=== PATIENT | male | born 1990 | race Caucasian/White ===

== ENCOUNTER 2024-07-15 09:43 | Outpatient (AMB) | payer OTHER, SELFPAY ==
--- NOTE | 2024-07-15 09:59 | AM.OFFWIN_ITS ---
Intake Vital Signs 07/15/24 10:05 Height 5 ft 5.75 in Weight 161 lb BMI 26.2 BP 118/70 Blood Pressure Location Lt brachial Position Sitting Pulse 78 Pulse Source Pulse Oximeter Temp 97.8 F Temp Source Oral Pulse Oximetry (%) 98 Oxygen Delivery Method Room Air Intake Visit Reasons: cotton swab stuck in right ear Intake Note: pt is here for walk in, patient was cleaning his ear and suspects the cotton was stuck in his right ear Patient Tobacco Use Status: Never used Tobacco Allergies No Known Allergies Allergy (Verified 07/15/24 10:17) Medication List - Last Reconciled 07/15/24 by Anthony Fermin CNP escitalopram oxalate 10 mg PO DAILY loratadine 10 mg PO DAILY Do you need a note to return to daycare/school/sports/work: Yes HPI HPI Comments History of Present Illness Details 34-year-old male presents with complaint s of a cotton ball being stuck in his right eardrum. He was cleaning his ear with a Q-tip this morning, when the cotton ball dislodged and stuck in the ear. He notes minimal diminished hearing to the right ear. He denies pain or discomfort. [facility] Social History Patient Tobacco Use Status: Never used Tobacco Review of Systems Const Details: Denies chills, Denies fatigue, Denies fever(s), Denies headache(s) and Denies weakness Cardiac Denies chest pain, Denies claudication, Denies leg edema, Denies lightheadedness, Denies palpitations, Denies dyspnea, Denies dyspnea on exertion, Denies orthopnea and Denies other (Loss of consciousness) Resp Denies cough, Denies excessive phlegm production, Denies dyspnea, Denies dyspnea on exertion, Denies snoring and Denies wheezing ENT Reports as per HPI Physical Exam Vital Signs: Last Vital Signs Temp 97.8 F 07/15/24 10:05 Pulse 78 07/15/24 10:05 BP 118/70 07/15/24 10:05 Pulse Ox 98 07/15/24 10:05 Oxygen Delivery Method Room Air 07/15/24 10:05 BMI result Body Mass Index 26.2 Const Other: General: comfortable and no acute distress Orientation/consciousness: patient oriented x3 Chest Chest palpation & inspection: normal inspection of the chest Resp Auscultation: clear to auscultation bilaterally Cardiac Palpation: normal PMI Heart sounds: S1 normal heart sound present, S2 normal heart sound present, no gallops, no murmur, no rubs ENT Cotton ball impacted in the right ear canal, occluding the right TM Assessment & Plan Assessment & Plan (1) Foreign body in right ear: Code(s): T16.1XXA - Foreign body in right ear, initial encounter Plan: Full-sized cotton ball from Q-tip removed from the right ear with ear curette. Reports normal hearing after cotton ball removal. Advised to avoid inserting cotton ball in his ears and follow-up with his PCP as needed. Verbalized understanding and agreed with the plan. Coding Level of Care Code New Pt Level 3 (33211) Diagnoses Foreign body in right ear T16.1XXA
[2024-07-15 10:05] VITALS: BP 118/70; PULSE 78; TEMP 36.6; O2SAT 98; BMI 26.2
--- OUTSIDE RECORDS SUMMARY | 2024-07-15 11:02 | XMS_ITS | Encounter Summary ---
Author Organization [facility] Address [address] [place] [address] Care Team Providers Care Cracker Off Name Role Phone Magdalena Little MD Primary Care Provider [phone] Reason for Referral * Imaging (Routine) - Pending Review Specialty Diagnoses / Procedures Referred By Allison fung Referred To Contact Radiology Diagnoses Nonintractable headache, unspecified chronicity pattern, unspecified headache type Procedures CT Head wo Contrast Magdalena Little MD [address] [address] Phone: tel: fax: [address] [phone] Phone: tel: Referral ID Status Reason Start Date Expiration Date V isits Requested Visits Authorized [id number] Pending Review 07/08/2024 07/08/2025 1 1 Reason for Visit * Reason Comments Follow-up Headache 2 days ago Encounter Details Date Type Department Care Team (Late st Contact Info) Description 07/08/2024 9:45 AM EST Office Visit Internal Medicine - [place] [address] [address] Magdalena Little MD 175 [facility] [place] [address] [place] [address] Adult general medical examination (Primary Dx); Insomnia, unspecified type; Vitamin D deficiency; Other fatigue; Nonintractable headache, unspecified chronicity pattern, unspecified headache type Social History Tobacco Use Types Packs/Day Years Used Date Smoking Tobacco: Never Smokeless Tobacco: Never Tobacco Cessation:Counseling Given: Not Answered Alcohol Use Standard Drinks/Week Comments Yes 0 (1 standard drink = 0.6 oz pur e alcohol) Sex and Gender Information Value Date Recorded Sex Assigned at Male 02/23/2022 12:58 PM EDT Legal Sex Male 6:59 PM EDT Gender Identity Male 02/23/2022 12:58 PM EDT Sexual Orientation Straight 02/23/2022 12 :58 PM EDT documented as of this encounter Last Filed Vital Signs Vital Sign Reading Time Taken Comments Blood Pressure 118/80 07/08/2024 10:14 AM EST Pulse 92 07/08/2024 10:14 AM EST Temperature 36.6 ??C (97.8 ??F) 07/08/2024 10:[address] Respiratory Rate - - Oxygen Saturation 99% 07/08/2024 10:14 AM EST Inhaled Oxygen Concentration - - Weight 70.3 kg (155 lb) 07/08/2024 10:14 AM EST Height - - Body Mass Index 25.02 09/23/2023 3:01 PM EDT documented in this encounter Ordered Prescriptions Prescription Sig Dispense Quantity Refills Last Filled Start Date End Date cholecalciferol (Vitamin D3) 50 mcg (2,000 unit) tablet Take 1 tablet (2,000 Units total) by mouth 1 (one) time each day. 90 tablet 2 07/08/2024 documented in this encounter Progress Notes * Magdalena Little MD - 07/08/2024 9:45 AM ESTAddended by: MAGDALENA LITTLE on: 07/08/2024 09:46 PM Modules accepted: Orders * Magdalena Little MD - 07/08/2024 9:45 AM EST CHIEF COMPLAINT: Follow-up and Headache (2 days ago ) IDENTIFIER: Antonia Rob is a 34 y.o. old male who presents for evaluation of general medical health. HPI:patient has lost about 15 pounds in the last 1 year voluntarily, he is not taking losartan. Hisblood pressure seems to be good. Today he is concerned about recurrent headaches especially on the right side and also on the back of his head ROS: GENERAL: No malaise, significant weight loss or fever HEENT: No changes in hearing or vision, nose bleeds or other nasal problems NECK: No lumps, goiter, pain or significant neck swelling RESPIRATORY: No cough, wheezing or shortness of breath CARDIOVASCULAR: No chest pain, leg swelling or palpitations GI: No abdominal discomfort, blood in stools or black stools : No dysuria, frequency or incontinence CARPENTRY TEACHER: No abnormal vaginal bleeding or abnormal vaginal discharge. MUSCULOSKELETAL: No joint pain or swelling, back pain, or muscle pain. SKIN: No lesions, rash or itching PSYCH: No sleep disturbance, mood disorder or recent psychosocial stressors. HEMATOLOGY/LYMPHOLOGY No prolonged bleeding, easy bruisability or swollen nodes ENDOCRINE: No cold or heat intolerance, polyuria, polydipsia or goiter. NEURO: No persistent headache, syncope, seizures, weakness or numbness PAST MEDICAL HISTORY: Patient Active Problem List Diagnosis Date Noted Subacute cough 05/24/2023 Hallux valgus of right foot 12/27/2020 ADD (attention deficit disorder) 08/16/2020 Allergic rhinitis 08/16/2020 Anxiety 08/16/2020 Insomnia 08/16/2020 Metatarsalgia of both feet 08/16/2020 Past Surgical History: Procedure Laterality Date NASAL SEPTUM SURGERY PROCEDURE: [place] SEPTOPLASTY/SUBMUCOUS RESECJ W/WO CARTILAGE GRF; COMMENT: deviation Most Recent Immunizations Administered Date(s) Administered COVID-19 (Pfizer/Comirnaty) 12yo and older 03/03/2024 Hepatitis B (Rdtxvsb-J-Ofryk, Recombivax HB-Adult) 19yo and older 09/30/2020 Pfizer (ages 12 & older) Bivalent, COVID-19 08/28/2022 Pfizer SARS-CoV-2 COVID-19, mRNA, LNP-S, preservative free 06/20/2021 Tdap Tetanus diptheria acellular pertussis (Boostrix; Adacel) 7yo and older 09/30/2020 HEALTH MAINTENANCE: Health Maintenance Topic Date Due Depression Screening Never done HIV Screening Never done Hepatitis C Screening Never done Social Influencers of Health Screening Never done Hepatitis B Vaccines (3 of 3 - 19+ 3-dose series) 03/02/2021 Influenza Vaccine (1) 02/02/2024 Cholesterol Screening (Lipid Panel) 05/17/2028 DTaP,Tdap,and Td Vaccines (2 - Td or Tdap) 09/30/2030 COVID-19 Vaccine Completed HIB Vaccines Aged Out IPV Vaccines Aged Out Hepatitis A Vaccines Aged Out MMR Vaccines Aged Out Varicella Vaccines Aged Out Meningococcal ACWY Vaccine Aged Out HPV Vaccines Aged Out Pneumococcal Vaccine: Pediatrics (0 to 5 Years) and At-Risk Patients (6 to 64 Years) Aged Out RSV Immunization Patients Under 20 months Aged Out SOCIAL HISTORY: Social History Tobacco Use Smoking status: Never Smokeless tobacco: Never Substance Use Topics Alcohol use: Yes FAMILY HISTORY: Family History Problem Relation Name Age of Onset Hypertension Mother Thyroid disorder Family Status Relation Name Status Mother (Not Specified) No partnership data on file MEDICATIONS DISCONTINUED/REORDERED: There are no discontinued medications. ACTIVE MEDICATIONS: No outpatient medications have been marked as taking for the 07/08/24 encounter (Office Visit) with Magdalena Little MD. ALLERGIES: No Known Allergies PHYSICAL EXAM: Visit Vitals BP 118/80 (BP Location: Left arm, Patient Position: Sitting, BP Cuff Size: Large adult) Pulse 92 Temp 36.6 ??C (97.8 ??F) (Temporal) Wt 70.3 kg (155 lb) SpO2 99% BMI 25.02 kg/m?? Smoking Status Never BSA 1.79 m?? Body mass index is 25.02 kg/m??. APPEARANCE: Alert and in no acute distress EYES: PERRLA, conjunctiva and sclera normal. Normal fundal exam. EARS: External ears normal. Canals clear. TMs normal. NOSE/SINUS: Nares normal. Septum midline. Mucosa normal. No drainage or sinus tenderness. MOUTH/THROAT: no erythema or exudates NECK: Neck supple, no adenopathy, thyroid symmetric and of normal size HEART: RRR with normal S1 and S2, no murmurs, no gallops, no JVD appreciated CHEST: non-tender LUNG: clear to auscultation LYMPH NODES: grossly normal ABDOMEN: Bowel sounds normoactive, no bruits, soft, non-tender, without organomegaly or palpable masses BACK: No pain to palpation with good flexion and extension EXTREMITIES: No edema, no discoloration NEURO: alert oriented 3 SKIN: Skin color, texture, turgor normal. No rashes or lesions LABS: Abstract on 06/17/2024 Component Date Value Ref Range Status Annual BMP Blood Test 05/17/2023 abstracted Final HM Urine Albumin Creatinine Ratio 12/27/2020 abstracted Final LDL/HDL Ratio 05/17/2023 3 0 - 4 Final Triglycerides 05/17/2023 55 0 - 150 mg/dL Final Cholesterol 05/17/2023 174 0 - 200 mg/dL Final HDL 05/17/2023 62 40 mg/dL Final LDL Cholesterol 05/17/2023 101 (A) 0 - 100 mg/dL Final Hemoglobin A1C 05/17/2023 5.3 6.5 % Final Medication and lab orders: Orders Placed This Encounter Procedures CT Head wo Contrast Comprehensive metabolic panel Lipid panel with reflex to direct LDL Complete blood count Thyroid stimulating hormone Vitamin D 25 hydroxy Other orders: CT HEAD WO CONTRAST IMPRESSION: 1. Adult general medical examination 2. Insomnia, unspecified type 3. Vitamin D deficiency 4. Other fatigue 5. Nonintractable headache, unspecified chronicity pattern, unspecified headache type PLAN: Will order CBC CMP lipid TSH vitamin D will order CT head, follow-up in 1 year or sooner as needed,Tylenol as needed for the headache. Magdalena Little MD on 07/08/2024 at 12:30 PM EST documented in this encounter Plan of Treatment Upcoming Encounters Date Type Department Care Team (Late st Contact Info) Description 08/04/2024 7:15 AM EST Appointment [facility] CT Scan [address] [place] [address] Scheduled Orders Name Type Priority Associated Diagnoses Orde r Schedule CT Head wo Contrast Imaging Routine Nonintractable headache, unspecified chronicity pattern, unspecified headache type Expected: 07/08/2024, Expires: 07/08/2025 documented as of this encounter Results * (ABNORMAL) Vitamin D 25 hydroxy (07/08/2024 10:56 AM EST) Vit D, 25-Hydroxy 29.3(L) 30.0 - 80.0 ng/mL LAB CHEMISTRY METHOD 07/08/2024 6:17 PM EST [facility] Blood Venous blood specimen / Unknown Venipuncture / Unknown 07/08/2024 10:56 AM EST 07/08/2024 10:56 AM EST us Magdalena Little MD LAB BLOOD ORDERABLES Final Res ult [facility] [address] [place] [address], [place] [phone] * Thyroid stimulating hormone (07/08/2024 10:56 AM EST) TSH 0.49 0.40 - 4.00 mcIU/mL LAB CHEMISTRY METHOD 07/08/2024 6:17 PM EST [facility] Blood Venous blood specimen / Unknown Venipuncture / Unknown 07/08/2024 10:56 AM EST 07/08/2024 10:56 AM EST us Magdalena Little MD LAB BLOOD ORDERABLES Final Res ult Performing Organization Address City/[facility]/ZIP Co de Phone Number [facility] [address] [place] [address], [place] [phone] * Complete blood count (07/08/2024 10:56 AM EST) WBC 5.3 4.8 - 10.8 K/mcL LAB HEMETOLOGY METHOD 07/08/2024 2:36 PM EST [facility] RBC 5.20 4.50 - 5.50 M/mcL LAB HEMETOLOGY METHOD 07/08/2024 2:36 PM EST [facility] Hemoglobin 15.6 13.5 - 17.5 g/dL LAB HEMETOLOGY METHOD 07/08/2024 2:36 PM EST [facility] Hematocrit 46.7 42.0 - 54.0 % LAB HEMETOLOGY METHOD 07/08/2024 2:36 PM EST [facility] MCV 89.3 79.0 - 98.0 FL LAB HEMETOLOGY METHOD 07/08/2024 2:36 PM [facility] MCH 29.8 27.0 - 32.0 pcg LAB HEMETOLOGY METHOD 07/08/2024 2:36 PM EST [facility] MCHC 33.4 32.0 - 37.0 g/dL LAB HEMETOLOGY METHOD 07/08/2024 2:36 PM [facility] RDW 11.9 11.0 - 15.0 % LAB HEMETOLOGY METHOD 07/08/2024 2:36 PM [facility] Platelets 230 130 - 400 K/mcL LAB HEMETOLOGY METHOD 07/08/2024 2:36 PM EST [facility] MPV 10.4 7.0 - 11.0 FL LAB HEMETOLOGY METHOD 07/08/2024 2:36 PM [facility] NRBC 0.0 <1.0 % LAB HEMETOLOGY METHOD 07/08/2024 2:36 PM [facility] NRBC Absolute 0.00 <0.10 K/mcL LAB HEMETOLOGY METHOD 07/08/2024 2:36 PM [facility] Blood Venous blood specimen / Unknown Venipuncture / Unknown 07/08/2024 10:56 AM EST 07/08/2024 10:56 AM EST us Magdalena Little MD LAB BLOOD ORDERABLES Final Res ult [facility] [address] [place] [address], [place] [phone] * Lipid panel with reflex to direct LDL (07/08/2024 10:56 AM EST) Cholesterol 146 0 - 200 mg/dL LAB CHEMISTRY METHOD 07/08/2024 6:31 PM [facility] Triglycerides 42 0 - 150 mg/dL LAB CHEMISTRY METHOD 07/08/2024 6:31 PM [facility] HDL 61 >=40 mg/dL LAB CHEMISTRY METHOD 07/08/2024 6:31 PM [facility] LDL Calculated 77 0 - 100 mg/dL LAB CHEMISTRY METHOD 07/08/2024 6:31 PM [facility] VLDL Cholesterol Nishant 8.4 mg/dL LAB CHEMISTRY METHOD 07/08/2024 6:31 PM [facility] Non HDL Chol. (LDL+VLDL) 85 <145 mg/dL LAB CHEMISTRY METHOD 07/08/2024 6:31 PM [facility] Chol/HDL Ratio 2.4 0.0 - 4.4 LAB CHEMISTRY METHOD 07/08/2024 6:31 PM [facility] Blood Venous blood specimen / Unknown Venipuncture / Unknown 07/08/2024 10:56 AM EST 07/08/2024 10:56 AM EST us Magdalena Little MD LAB BLOOD ORDERABLES Final Res ult [facility] [address] [place] [address], * (ABNORMAL) Comprehensive metabolic panel (07/08/2024 10:56 AM EST) [facility] Sodium 140 133 - 145 mmol/L LAB CHEMISTRY METHOD 07/08/2024 6:31 PM [facility] Potassium 3.9 3.5 - 5.5 mmol/L LAB CHEMISTRY METHOD 07/08/2024 6:31 PM [facility] Chloride 106 96 - 110 mmol/L LAB CHEMISTRY METHOD 07/08/2024 6:31 PM [facility] CO2 29 21 - 32 mmol/L LAB CHEMISTRY METHOD 07/08/2024 6:31 PM [facility] Anion Gap 5 3 - 11 LAB CHEMISTRY METHOD 07/08/2024 6:31 PM [facility] Glucose 100 70 - 100 mg/dL LAB CHEMISTRY METHOD 07/08/2024 6:31 PM [facility] BUN 9 5 - 25 mg/dL LAB CHEMISTRY METHOD 07/08/2024 6:31 PM [facility] Creatinine 0.94 0.70 - 1.30 mg/dL LAB CHEMISTRY METHOD 07/08/2024 6:31 PM [facility] eGFR 110 >=60 mL/min/1. 73m2 LAB CHEMISTRY METHOD 07/08/2024 6:31 PM [facility] Comment:Calculation based on the??Chronic Kidney Disease Epidemiology Collaboration (CKD-EPI) equation refit??without adjustment for race. BUN/Creatinine Ratio 9.6 LAB CHEMISTRY METHOD 07/08/2024 6:31 PM [facility] Calcium 9.7 8.5 - 10.5 mg/dL LAB CHEMISTRY METHOD 07/08/2024 6:31 PM [facility] AST (SGOT) 18 10 - 42 unit/L LAB CHEMISTRY METHOD 07/08/2024 6:31 PM [facility] ALT (SGPT) 28 10 - 60 unit/L LAB CHEMISTRY METHOD 07/08/2024 6:31 PM [facility] Alkaline Phosphatase 77 42 - 121 unit/L LAB CHEMISTRY METHOD 07/08/2024 6:31 PM [facility] Total Protein 7.2 6.0 - 8.0 g/dL LAB CHEMISTRY METHOD 07/08/2024 6:31 PM [facility] Albumin 4.4 3.2 - 5.0 g/dL LAB CHEMISTRY METHOD 07/08/2024 6:31 PM [facility] Total Bilirubin 2.5(H) 0.0 - 1.4 mg/dL LAB CHEMISTRY METHOD 07/08/2024 6:31 PM EST [facility] Blood Venous blood specimen / Unknown Venipuncture / Unknown 07/08/2024 10:56 AM EST 07/08/2024 10:56 AM EST us Magdalena Little MD LAB BLOOD ORDERABLES Final Res ult [facility] [address] [place] [address], documented in this encounter Visit Diagnoses Diagnosis Adult general medical examination- Primary Unspecified general medical examination Insomnia, unspecified type Vitamin D deficiency Other fatigue Nonintractable headache, unspecified chronicity pattern, unspecified headache type documented in this encounter Care Teams Cracker Off Relationship Specialty Start Date End Date Magdalena Little MD [address] [phone] PCP - General Internal Medicine 07/08/24 documented as of this encounter
--- OUTSIDE RECORDS SUMMARY | 2024-07-15 11:02 | XMS_ITS | Clinical Summary ---
Author Organization Patient Business Ser [facility] Address [address] [place] [address] Care Team Providers Care County Supervisor Name Role Phone Magdalena Little MD Primary Care Provider [phone] Allergies No known active allergies Medications albuterol HFA (PROAIR HFA ; PROVENTIL HFA ; VENTOLIN HFA) 90 mcg/actuation inhaler Inhale 2 Puffs into the lungs every 4 hours as needed for Cough or Wheezing. 05/24/2023 Active AMOXICILLIN ORAL Take by mouth. Active cetirizine (ZyrTEC) 10 mg capsule Take 1 capsule (10 mg total) by mouth 1 (one) time each day. 05/24/2023 Active cholecalciferol (VITAMIN D-3) 50 mcg (2,000 unit) tablet Take 1 tablet (2,000 Units total) by mouth 1 (one) time each day. 05/17/2023 Active citalopram (CeleXA) 10 mg/5 mL suspension Take 5 mL (10 mg total) by mouth 1 (one) time each day. Active gackc-zspye-3-d tv-voo-egegmw (krill oil) 259-79-68-50 mg capsule Take 1 capsule by mouth 1 (one) time each day. Active losartan (COZAAR) 25 mg tablet Take 1 tablet (25 mg total) by mouth 1 (one) time each day. 05/09/2023 Active melatonin 5 mg tablet Take 1 tablet (5 mg total) by mouth at bedtime. Active methylphenidate HCl (CONCERTA ORAL) Take by mouth. Active cholecalciferol (Vitamin D3) 50 mcg (2,000 unit) tablet Take 1 tablet (2,000 Units total) by mouth 1 (one) time each day. 90 tablet 2 07/08/2024 Active Active Problems Problem Noted Date Diagnosed Date Subacute cough 05/24/2023 Overview (06/17/2024): Last Assessment & Plan: Young 33-year-old man, non-smoker who developed cough 2-1/2 months ago after respiratory tract infection. I explained Andrew that given that he is improving little by little, and confident that this is most likely related to reactive airway disease. I advised him to continue using the albuterol and given his history of allergies I will prescribe him with Zyrtec 10 mg p.o. every day. I told him that it if in 3 months he continue with a cough come back to see me and I ordered a pulmonary function test. I also ordered a chest x-ray. Hallux valgus of right foot 12/27/2020 ADD (attention deficit disorder) 08/16/2020 Allergic rhinitis 08/16/2020 Anxiety 08/16/2020 Insomnia 08/16/2020 Metatarsalgia of both feet 08/16/2020 Encounters Date Type Department Care Team Description 07/08/2024 9:45 AM EST Office Visit Internal Medicine - [address] [place] [address] Magdalena Little MD Adult general medical examination (Primary Dx); Insomnia, unspecified type; Vitamin D deficiency; Other fatigue; Nonintractable headache, unspecified chronicity pattern, unspecified headache type from Last 3 Months Immunizations Name Administration Dates Next Due Hepatitis B (Aarklhl-A-Kxpyx , Recombivax HB-Adult) 19yo and older 09/30/2020,08/30/2020 Tdap Tetanus diptheria acell ular pertussis (Boostrix; Adacel) 7yo and older 09/30/2020 Surgical History Surgery Date Site/Laterality Comments NASAL SEPTUM SURGERY PROCEDURE: MD SEPTOPLASTY/SUBMUCOUS RESECJ W/WO CARTILAGE GRF; COMMENT: deviation Medical History Medical History Date Comments Anxiety 08/16/2020 DX:Anxiety Insomnia 08/16/2020 DX:Insomnia ADD (attention deficit disorder) 08/16/2020 DX:ADD (attention deficit disorder) Metatarsalgia of both feet 08/16/2020 DX:Me tatarsalgia of both feet Allergic rhinitis 08/16/2020 DX:Allergic rh initis Family History Medical History Relation Name Comments Hypertension Mother Thyroid disorde r Relation Name Status Comments Mother Social History Tobacco Use Types Packs/Day Years [...] Orientation Straight 02/23/2022 12 :58 PM EDT Obstetrics History Last Filed Vital Signs Vital Sign Reading Time Taken Comments Blood Pressure 118/80 07/08/2024 10:14 AM EST Pulse 92 07/08/2024 10:14 AM EST Temperature 36.6 ??C (97.8 ??F) 07/08/2024 10:[address] Respiratory Rate - - Oxygen Saturation 99% 07/08/2024 10:14 AM EST Inhaled Oxygen Concentration - - Weight 70.3 kg (155 lb) 07/08/2024 10:14 AM EST Height 167.6 cm (5' 6 ) 09/23/2023 3:01 PM EDT Body Mass Index 25.02 09/23/2023 3:01 PM EDT Plan of Treatment Upcoming Encounters Date Type Department Care Team (Late st Contact Info) Description 08/04/2024 7:15 AM EST Appointment [facility] Scan [address] [place] [address] Health Maintenance Due Date Last Done Comments Depression Screening 12/27/2020 HIV Screening 12/27/2020 Hepatitis C Screening 12/27/2020 Social Influencers of Health Screening 12/27/2020 Hepatitis B Vaccines (3 of 3 - 19+ 3-dose series) 03/02/2021 09/30/2020, 08/30/2020 Influenza Vaccine (#1) 2024 02/15/2023, 2021 Cholesterol Screening (Lipid Panel) 07/08/2029 07/08/2024, 05/17/2023 DTaP,Tdap,and Td Vaccines (2 - Td or Tdap) 09/30/2030 09/30/2020 COVID-19 Vaccine Completed 03/03/2024, , 06/20/2021, Additional history exists HIB Vaccines Aged Out No longer eligi ble based on patient's age to complete this topic HPV Vaccines Aged Out No longer eligi ble based on patient's age to complete this topic Hepatitis A Vaccines Aged Out No long er eligible based on patient's age to complete this topic IPV Vaccines Aged Out No longer eligi ble based on patient's age to complete this topic MMR Vaccines Aged Out No longer eligi ble based on patient's age to complete this topic Meningococcal ACWY Vaccine Aged Out N o longer eligible based on patient's age to complete this topic Meningococcal B Vacine Aged Out No lo nger eligible based on patient's age to complete this topic Pneumococcal Vaccine: Pediatrics (0 to 5 Years) and At-Risk Patients (6 to 64 Years) Aged Out No longer eligible based on patient's age to complete this topic RSV Immunization Patients Under 20 months Aged Out No longer eligible based on patient's age to complete this topic Varicella Vaccines Aged Out No longer eligible based on patient's age to complete this topic Procedures Procedure Name Priority Date/Time Associated Diagnosis Comments VITAMIN D 25 HYDROXY Routine 07/08/2024 10:56 AM EST Insomnia, unspecified type Vitamin D deficiency Adult general medical examination Other fatigue THYROID STIMULATING HORMONE Routine 07/08/2024 10:56 AM EST Insomnia, unspecified type Vitamin D deficiency Adult general medical examination Other fatigue COMPLETE BLOOD COUNT Routine 07/08/2024 10:56 AM EST Insomnia, unspecified type Vitamin D deficiency Adult general medical examination Other fatigue LIPID PANEL WITH REFLEX TO DIRECT LDL Routine 07/08/2024 10:56 AM EST Insomnia, unspecified type Vitamin D deficiency Adult general medical examination Other fatigue COMPREHENSIVE METABOLIC PANEL Routine 07/08/2024 10:56 AM EST Insomnia, unspecified type Vitamin D deficiency Adult general medical examination Other fatigue from Last 3 Months Results * Lipid panel with reflex to direct LDL (07/08/2024 10:56 AM EST) Cholesterol 146 0 - 200 mg/dL LAB CHEMISTRY METHOD 07/08/2024 6:[address] [facility] Triglycerides 42 0 - 150 mg/dL LAB CHEMISTRY METHOD 07/08/2024 6:[address] [facility] HDL 61 >=40 mg/dL LAB CHEMISTRY METHOD 07/08/2024 6:31 PM [facility] LDL Calculated 77 0 - 100 mg/dL LAB CHEMISTRY METHOD 07/08/2024 6:31 PM [facility] VLDL Cholesterol Nishant 8.4 mg/dL LAB CHEMISTRY METHOD 07/08/2024 6:31 PM [facility] Non HDL Chol. (LDL+VLDL) 85 <145 mg/dL LAB CHEMISTRY METHOD 07/08/2024 6:[address] [facility] Chol/HDL Ratio 2.4 0.0 - 4.4 LAB CHEMISTRY METHOD 07/08/2024 6:31 PM [facility] Blood Venous blood specimen / Unknown Venipuncture / Unknown 07/08/2024 10:56 AM EST 07/08/2024 10:56 AM EST us Magdalena Little MD LAB BLOOD ORDERABLES Final Res ult [facility] [address] [place] [address], * (ABNORMAL) Vitamin D 25 hydroxy (07/08/2024 10:56 AM EST) Vit D, 25-Hydroxy 29.3(L) 30.0 - 80.0 ng/mL LAB CHEMISTRY METHOD 07/08/2024 6:17 PM [facility] Blood Venous blood specimen / Unknown Venipuncture / Unknown 07/08/2024 10:56 AM EST 07/08/2024 10:56 AM EST us Magdalena Little MD LAB BLOOD ORDERABLES Final Res ult [facility] [address] [place] [address], * Complete blood count (07/08/2024 10:56 AM EST) WBC 5.3 4.8 - 10.8 K/mcL LAB HEMETOLOGY METHOD 07/08/2024 2:36 PM [facility] RBC 5.20 4.50 - 5.50 M/mcL LAB HEMETOLOGY METHOD 07/08/2024 2:36 PM [facility] Hemoglobin 15.6 13.5 - 17.5 g/dL LAB HEMETOLOGY METHOD 07/08/2024 2:36 PM [facility] Hematocrit 46.7 42.0 - 54.0 % LAB HEMETOLOGY METHOD 07/08/2024 2:36 PM [facility] MCV 89.3 79.0 - 98.0 FL LAB HEMETOLOGY METHOD 07/08/2024 2:36 PM [facility] MCH 29.8 27.0 - 32.0 pcg LAB HEMETOLOGY METHOD 07/08/2024 2:36 PM [facility] MCHC 33.4 32.0 - 37.0 g/dL LAB HEMETOLOGY METHOD 07/08/2024 2:36 PM [facility] RDW 11.9 11.0 - 15.0 % LAB HEMETOLOGY METHOD 07/08/2024 2:36 PM [facility] Platelets 230 130 - 400 K/mcL LAB HEMETOLOGY METHOD 07/08/2024 2:[address] [facility] MPV 10.4 7.0 - 11.0 FL LAB HEMETOLOGY METHOD 07/08/2024 2:[address] [facility] NRBC 0.0 <1.0 % LAB HEMETOLOGY METHOD 07/08/2024 2:[address] [facility] NRBC Absolute 0.00 <0.10 K/[facility] LAB HEMETOLOGY METHOD 07/08/2024 2:[address] [facility] Blood Venous blood specimen / Unknown Venipuncture / Unknown 07/08/2024 10:56 AM EST 07/08/2024 10:56 AM EST us Magdalena Little MD LAB BLOOD ORDERABLES Final Res ult Performing Organization Address City/[facility]/ZIP Co de Phone Number [facility] [address] [place] [address], [place] [phone] * Thyroid stimulating hormone (07/08/2024 10:56 AM EST) Pathologist [facility] TSH 0.49 0.40 - 4.00 mcIU/mL LAB CHEMISTRY METHOD 07/08/2024 6:17 PM [facility] Blood Venous blood specimen / Unknown Venipuncture / Unknown 07/08/2024 10:56 AM EST 07/08/2024 10:56 AM EST us Magdalena Little MD LAB BLOOD ORDERABLES Final Res ult [facility] [address] [place] [address], [place] [phone] * (ABNORMAL) Comprehensive metabolic panel (07/08/2024 10:56 AM EST) Sodium 140 133 - 145 mmol/L LAB CHEMISTRY METHOD 07/08/2024 6:31 PM [facility] Potassium 3.9 3.5 - 5.5 mmol/L LAB CHEMISTRY METHOD 07/08/2024 6:31 PM [facility] Chloride 106 96 - 110 mmol/L LAB CHEMISTRY METHOD 07/08/2024 6:31 PM [facility] CO2 29 21 - 32 mmol/L LAB CHEMISTRY METHOD 07/08/2024 6:31 PM [facility] Anion Gap 5 3 - 11 LAB CHEMISTRY METHOD 07/08/2024 6:31 PM [facility] Glucose 100 70 - 100 mg/dL LAB CHEMISTRY METHOD 07/08/2024 6:31 PM [facility] BUN 9 5 - 25 mg/dL LAB CHEMISTRY METHOD 07/08/2024 6:31 PM [facility] Creatinine 0.94 0.70 - 1.30 mg/dL LAB CHEMISTRY METHOD 07/08/2024 6:31 PM [facility] eGFR 110 >=60 mL/min/1. 73m2 LAB CHEMISTRY METHOD 07/08/2024 6:31 PM [facility] Comment:Calculation based on the??Chronic Kidney Disease Epidemiology Collaboration (CKD-EPI) equation refit??without adjustment for race. BUN/Creatinine Ratio 9.6 LAB CHEMISTRY METHOD 07/08/2024 6:31 PM [facility] Calcium 9.7 8.5 - 10.5 mg/dL LAB CHEMISTRY METHOD 07/08/2024 6:31 PM [facility] AST (SGOT) 18 10 - 42 unit/L LAB CHEMISTRY METHOD 07/08/2024 6:31 PM [facility] ALT (SGPT) 28 10 - 60 unit/L LAB CHEMISTRY METHOD 07/08/2024 6:31 PM [facility] Alkaline Phosphatase 77 42 - 121 unit/L LAB CHEMISTRY METHOD 07/08/2024 6:31 PM EST [facility] Total Protein 7.2 6.0 - 8.0 g/dL LAB CHEMISTRY METHOD 07/08/2024 6:[address] [facility] Albumin 4.4 3.2 - 5.0 g/dL LAB CHEMISTRY METHOD 07/08/2024 6:[address] [facility] Total Bilirubin 2.5(H) 0.0 - 1.4 mg/dL LAB CHEMISTRY METHOD 07/08/2024 6:[address] [facility] Blood Venous blood specimen / Unknown Venipuncture / Unknown 07/08/2024 10:56 AM EST 07/08/2024 10:56 AM EST us Magdalena Little MD LAB BLOOD ORDERABLES Final Res ult [facility] [address] [place] [address], from Last 3 Months Insurance [facility] [employer] Care Teams County Supervisor Relationship Specialty Start Date End Date Magdalena Little MD [address] [id number] PCP - General Internal Medicine 07/08/24
--- OUTSIDE RECORDS SUMMARY | 2024-07-15 11:02 | XMS_ITS | Clinical Summary ---
Author Organization [employer] Address [address] [place] [address] 7 [place] [address] Care Team Providers Care Social Worker School Name Role Phone Unavailable Primary Care Provider Unavailabl e Allergies No known active allergies Medications escitalopram (Lexapro) 5 MG tablet Take 5 mg by mouth Once per day. 06/10/2023 Active hydrOXYzine HCl (Atarax) 10 MG tablet Take 10 mg by mouth if needed in the morning and at bedtime for anxiety. 05/29/2023 Active Active Problems No known active problems Encounters Date Type Department Care Team Description 05/26/2024 8:00 AM EST Office Visit [facility] [address] [place] [id number] Florencio Bradley DMD from Last 3 Months Social History Tobacco Use Types Packs/Day Years Used Date Smoking Tobacco: Never Smokeless Tobacco: Never Tobacco Cessation:Counseling Given: Not Answered Alcohol Use Standard Drinks/Week Comments Never 0 (1 standard drink = 0.6 oz pur e alcohol) Sex and Gender Information Value Date Recorded Sex Assigned at Male 08/06/2023 4:10 PM EST Legal Sex Male 3:12 PM EST Gender Identity Male 08/06/2023 4:10 PM EST Sexual Orientation Choose not to disclose 2023 4:10 PM EST Last Filed Vital Signs Vital Sign Reading Time Taken Comments Blood Pressure 150/86 04/01/2024 3:09 PM EDT Pulse 83 04/01/2024 3:09 PM EDT Temperature - - Respiratory Rate - - Oxygen Saturation - - Inhaled Oxygen Concentration - - Weight - - Height - - Body Mass Index - - Plan of Treatment Health Maintenance Due Date Last Done Comments Dental X-Ray: Full Mouth 1992 Depression Screening 1992 HIV Screening 1992 SDOH Screening 1992 Alcohol/Substance Use Screening 2004 Family Planning (PISQ) 02/18/2007 Hepatitis C Screening 02/18/2010 Hepatitis B Vaccines (3 of 3 - 19+ 3-dose series) 03/02/2021 09/30/2020, 08/30/2020 Influenza Vaccine (#1) 2024 02/15/2023, 2021 Dental Oral Exam 02/28/2024 08/27/2023 Dental X-Ray: Bitewings 08/27/2024 08/27/2023 Dental Prophylaxis 10/01/2024 04/01/2024 Tobacco Screening 05/26/2025 05/26/2024 DTaP/Tdap/Td Vaccines (2 - Td or Tdap) 09/30/2030 09/30/2020 Zoster Vaccines (1 of 2) 02/18/2042 RSV Patients and Patients Aged 60 years or older (1 - 1-dose 75+ series) 02/18/2067 COVID-19 Vaccine Completed 03/03/2024, , 06/20/2021, Additional [...] patient's age to complete this topic Meningococcal Vaccine Aged Out No curtis david eligible based on patient's age to complete this topic Pneumococcal Vaccine: Pediatrics (0 to 5 Years) and At-Risk Patients (6 to 49) Years) Aged Out No longer eligible based on patient's age to complete this topic RSV under 20 months Aged Out No longe r eligible based on patient's age to complete this topic Rotavirus Vaccines Aged Out No longer eligible based on patient's age to complete this topic Procedures Procedure Name Priority Date/Time Associated Diagnosis Comments ADJUNCTIVE GENERAL SERVICES - PROFESSIONAL VISITS - CASE PRESENTATION, SUBSEQUENT TO DETAILED AND EXTENSIVE TREATMENT PLANNING Routine 05/26/2024 8:00 AM EST 29 B(V) RESTORATIVE - RESIN-BASED COMPOSITE RESTORATIONS - DIRECT - RESIN-BASED COMPOSITE - ONE SURFACE, POSTERIOR Routine 05/26/2024 8:00 AM EST PROPHYLAXIS - ADULT Routine 04/01/2024 3 :00 PM EDT BITEWINGS - 4 RADIOGRAPHIC IMAGES Routine 08/27/2023 8:00 AM EDT COMPREHENSIVE ORAL EVALUATION - NEW OR ESTABLISHED PATIENT Routine 08/27/2023 8:00 AM EDT from Last 3 Months or Most Recently Relevant to Health Maintenance Insurance [facility] [employer] [place] AD[place]
--- OUTSIDE RECORDS SUMMARY | 2024-07-15 11:02 | XMS_ITS | Encounter Summary ---
Author Organization [employer] Address [address] [place] [address] Care Team Providers Care Rougher Helper Name Role Phone Unavailable Primary Care Provider Unavailabl e Encounter Details Date Type Department Care Team (Late st Contact Info) Description 10/23/2023 Telephone [facility] [address] [place] [address] Jama Looney, DARIO [address] [place] [address] Social History Tobacco Use Types Packs/Day Years Used Date Smoking Tobacco: Never Assessed Sex and Gender Information Value Date Recorded Sex Assigned at Male 08/06/2023 4:10 PM EST Legal Sex Male 3:12 PM EST Gender Identity Male 08/06/2023 4:10 PM EST Sexual Orientation Choose not to disclose 2023 4:10 PM EST documented as of this encounter Miscellaneous Notes * Telephone Encounter - Tatiana Howard - 10/23/2023 2:20 PM EDT Patient is looking for his grown can we find out if its back thank you. documented in this encounter Plan of Treatment Not on file documented as of this encounter Visit Diagnoses Not on filedocumented in this encounter
== END 2024-07-15 10:31 | disposition home or self-care (01) ==
LOC: HO.HMCWIW 09:43
PROVIDERS: PCP Internal Medicine; Visit Provider Nurse Practitioner Family
DX: T16.1XXA Foreign body in right ear, initial encounter (principal)

== ENCOUNTER → 2024-07-15 09:43 | Outpatient (BNVA) | payer OTHER, SELFPAY | PROVIDERS: PCP Internal Medicine; Visit Provider Nurse Practitioner Family | DX: T16.1XXA Foreign body in right ear, initial encounter (principal) | CPT/HCPCS: 99202 ==